=== PATIENT | male | born 1945 | race Caucasian/White ===

== ENCOUNTER → 2016-06-08 | Outpatient (CLI) | payer OTHER ==
[~2016-06-08] MED LIST: DEPO METHYLPREDNISOLONE 40 MG/ML SDV ONE; IOPAMIDOL (ISOVUE 370) 100 ML BTL IV ONE; LIDOCAINE 1% 30 ML SDV ONE; NA BICARBONATE 50 MEQ/50 ML VIAL ONE; ROPIVACAINE HCL 150 MG/30 ML INJ ONE
--- NOTE | 2016-06-08 11:31 | DX ---
Right Hip Fluoroscopic-Guided Therapeutic Injection at 1054 hours History: Hip pain. Crosscutting Measure #226: Current tobacco user: no. Consent:Informed written and oral consent was obtained. Fluoroscopy Time: 0.2 minute. Cumulative dose 0.9 mGy. Procedure: Utilizing fluoroscopic guidance and sterile technique, the hip was prepped in usual steri le fashion. Lidocaine with bicarbonate was used as local anesthesia. Then, a 22-gauge spinal needle w as advanced into the lateral femoral neck aspect of the hip joint. 1 cc nonionic contrast injected in to the joint to document positioning. The initial injection was seen to be extra-articular and the ne edle was repositioned and then contrast shown to be intra-articular. Then, 4 mL of Ropivacaine and 40 mg of Depo-medrol were injected into the hip joint. Needle was removed. Manual hemostasis was achiev ed. Patient tolerated the procedure well without immediate complications. Discharge instructions were given. Impression: 1. Successful right hip 40 mg Depo-medrol and 4 mL Ropivacaine injection under fluoroscopic guidance. 2. No immediate complications.
== END ==
LOC: FIMAGING 10:04
PROVIDERS: ATTEND Orthopaedic Surgery
PROC: 3E0U33Z Introduction of Anti-inflammatory into Joints, Percutaneous Approach (ICD-10-PCS; principal; 2016-06-08)
PROC: 3E0U3BZ Introduction of Anesthetic Agent into Joints, Percutaneous Approach (ICD-10-PCS; 2016-06-08)
DX: M25.551 Pain in right hip (principal)
CPT/HCPCS: 20610; J1020; J2795; Q9967

== ENCOUNTER → 2017-11-14 | Outpatient (CLI) | payer OTHER | LOC: BHFA 15:30 | PROVIDERS: ATTEND Internal Medicine Interventional Cardiology | DX: R06.02 Shortness of breath (principal) ==

== ENCOUNTER → 2017-11-27 | Outpatient (CLI) | payer OTHER | LOC: BHFA 16:15 | PROVIDERS: ATTEND Internal Medicine | DX: R53.83 Other fatigue (principal) ==

== ENCOUNTER → 2018-08-23 | Outpatient (CLI) | payer OTHER | LOC: FIMAGING 18:41 | PROVIDERS: ATTEND Internal Medicine | DX: R29.898 Other symptoms and signs involving the musculoskeletal system (principal); G31.9 Degenerative disease of nervous system, unspecified | CPT/HCPCS: 70551-PN ==